=== PATIENT | male | born 1955 | race Caucasian/White ===

== ENCOUNTER 2017-04-24 02:41 | Emergency (ER) | payer SELFPAY, OTHER ==
[2017-04-24] MEDS: IBUPROFEN 600 MG TAB PO (04:46)
== END 2017-04-24 06:04 | disposition home or self-care (01) ==
LOC: FTE 02:41
DX: J18.9 Pneumonia, unspecified organism (principal); Z79.82 Long term (current) use of aspirin
CPT/HCPCS: 71045; 99283-25

== ENCOUNTER 2017-04-27 08:19 | Emergency (ER) | payer SELFPAY | END 2017-04-27 11:25 | disposition home or self-care (01) | LOC: FTE 08:19 | DX: R05 Cough (principal); Z79.82 Long term (current) use of aspirin | CPT/HCPCS: 71045; 99284-25 ==